=== PATIENT | female | born 1995 | race Caucasian/White ===

== ENCOUNTER 2019-01-11 15:08 | Outpatient (CLI) | payer MEDICAID ==
[2019-01-11 18:22] LABS: Basophils # (Auto) 0.1 K/mm3 (0.0-0.1); Basophils % (Auto) 0.6 % (0.0-1.8); Eosinophils # (Auto) 0.1 K/mm3 (0.0-0.4); Eosinophils % (Auto) 0.9 % (0.0-4.3); Hematocrit 32.2 % (30.3-42.9); Lymphocytes # (Auto) 1.7 K/mm3 (1.2-5.4); Lymphocytes % (Auto) 19.9 % (13.4-35.0); Mean Corpuscular HGB Conc 34 % (30-34); Mean Corpuscular Volume 92 fl (79-97); Monocytes # (Auto) 0.5 K/mm3 (0.0-0.8); Monocytes % (Auto) 6.3 % (0.0-7.3); Platelet Count 298 K/mm3 (140-440); Red Blood Count 3.49 M/mm3 (3.65-5.03); Red Cell Distribution Width 13.6 % (13.2-15.2)
[2019-01-11 18:40] LABS: Alanine Aminotransferase 12 units/L (7-56); Albumin 3.4 g/dL (3.9-5); BUN/Creatinine Ratio 18; Blood Urea Nitrogen 9 mg/dL (7-17); Hemolysis Index 5
[2019-01-11 19:01] VITALS: BP 121/79
[2019-01-11 19:33] LABS: Bilirubin,Urine NEG (Negative); Blood,Urine NEG (Negative); Color,Urine Straw (Yellow); Protein,Urine <15 mg/dL mg/dL (Negative); Urobilinogen,Urine < 2.0 mg/dL (<2.0)
--- NOTE | 2019-01-12 06:12 | Progress Note ---
Assessment and Plan A: at 33 1/7 weeks gestation. Near syncopal episode at home. P: EFM/NST. CMP, CBC, UA. Hydration. To ED via W/C for further evaluation after D/C from L&D triage. Advised patient to follow up at [facility] this week. Warning signs and daily movement counting discussed with pt. Subjective - Subjective Date of service: 01/11/19 Principal diagnosis: at 33 1/7 weeks gestation; near syncopal episode at home today Interval history: Triage note for 01/11/19: 23 year old presents to L&D triage at 33 1/7 weeks gestation complaining of near syncopal episode at home today. Patient states the episode occurred around 2:00 PM today; states she was sitting in a chair, had just finished eating lunch, and fell forward but did not fall out of chair. Pt. states she believed she was out for a few seconds only; states she vomited once, then felt better. She states she did not hit her head or her belly. Patient states she had a mild headache after the near syncopal event. She denies shaking, jerking, dizziness, palpitations, shortness of breath, chest pain, cough, leg pain, vaginal bleeding, leaking of fluid, contractions, abdominal pain, or any other problems. Patient states she feels active movement. No current medications other than LDA. Patient reports: movement normal, no loss of fluid, no vaginal bleeding, no contractions Objective - Vital Signs Vital Signs: Vital Signs - 12hr 01/11/19 01/11/19 19:00 19:06 Temperature 98.5 F Pulse Rate 74 Respiratory 18 Rate Blood Pressure 121/79 - Exam Abdomen: Present: normal appearance, soft. Absent: distention, tenderness, guarding, rigidity Uterus: Present: normal, fundal height above umbilicus. Absent: tenderness FHR: category 1 Uterine Contraction Monitor Mode: External Uterine Contraction Pattern: Absent Extremities: normal - Labs Labs: Abnormal Labs 01/11/19 01/11/19 17:59 17:59 RBC 3.49 L Seg Neutrophils % 72.3 H Creatinine 0.5 L Alkaline Phosphatase 163 H Total Protein 6.2 L Albumin 3.4 L Laboratory Results - last 24 hr 02/24/19 02/24/19 02/24/19 17:16 17:59 17:59 WBC 8.6 RBC 3.49 L Hgb 11.0 Hct 32.2 MCV 92 MCH 32 MCHC 34 RDW 13.6 Plt Count 298 Lymph % (Auto) 19.9 Millard % (Auto) 6.3 Eos % (Auto) 0.9 Baso % (Auto) 0.6 Lymph # 1.7 Millard # 0.5 Eos # 0.1 Baso # 0.1 Seg Neutrophils % 72.3 H Seg Neutrophils # 6.2 Sodium 138 Potassium 4.5 Chloride 103.3 Carbon Dioxide 25 Anion Gap 14 BUN 9 Creatinine 0.5 L Estimated GFR > 60 BUN/Creatinine Ratio 18 Glucose 92 Calcium 9.0 Total Bilirubin 0.30 AST 14 ALT 12 Alkaline Phosphatase 163 H Total Protein 6.2 L Albumin 3.4 L Albumin/Globulin Ratio 1.2 Urine Color Straw Urine Turbidity Clear Urine pH 6.0 Ur Specific Elizabeth 1.004 Urine Protein <15 mg/dl Urine Glucose (UA) Neg Urine Ketones Neg Urine Blood Neg Urine Nitrite Neg Urine Bilirubin Neg Urine Urobilinogen < 2.0 Ur Leukocyte Esterase Neg Urine WBC (Auto) 2.0 Urine RBC (Auto) 1.0 U Epithel Cells (Auto) 2.0
== END 2019-01-11 20:15 | disposition home or self-care (01) ==
LOC: TRG 15:08
PROVIDERS: ATTEND Obstetrics & Gynecology
DX: O47.03 False labor before 37 completed weeks of gestation, third trimester (principal); Z3A.33 33 weeks gestation of pregnancy
CPT/HCPCS: 36415; 59025; 71275; 80053; 81001; 83735; 84484; 85025; 85379; 85610; 85730; 93005; 93010; Q9967

== ENCOUNTER 2019-01-11 20:19 | Emergency (ER) | payer MEDICAID ==
--- NOTE | 2019-01-11 20:39 | Emergency Department Report ---
Blank Doc - Documentation Documentation: This is a 23-year-old female that presents with syncopal episode. Patient sta nalini is 33 weeks . Denies any vaginal bleeding. This initial assessment diagnostic orders/clinical plan/treatment(s) is/are subject to change based on patient's health status, clinical progression and re- assessment by fellow clinical providers in the ED. Further treatment and workup at subsequent clinical providers discretion. Patient/guardians urged not to elope from ED s their condition may be serious if not clinically assessed and managed. Initial orders include: 1-Patient sent to MAIN ED for further evaluation and treatment 2- Labs 3- UA 4- EKG
[2019-01-11 21:05] LABS: Basophils % (Auto) 0.6 % (0.0-1.8); Eosinophils # (Auto) 0.1 K/mm3 (0.0-0.4); Eosinophils % (Auto) 1.1 % (0.0-4.3); Hematocrit 34.9 % (30.3-42.9); Hemoglobin 11.8 gm/dl (10.1-14.3); Lymphocytes # (Auto) 2.2 K/mm3 (1.2-5.4); Lymphocytes % (Auto) 27.5 % (13.4-35.0); Mean Corpuscular HGB Conc 34 % (30-34); Mean Corpuscular Volume 93 fl (79-97); Monocytes # (Auto) 0.5 K/mm3 (0.0-0.8); Monocytes % (Auto) 6.7 % (0.0-7.3); Platelet Count 296 K/mm3 (140-440); Red Blood Count 3.77 M/mm3 (3.65-5.03); Red Cell Distribution Width 13.6 % (13.2-15.2)
[2019-01-11 21:08] LABS: Bilirubin,Urine NEG (Negative); Blood,Urine NEG (Negative); Color,Urine Straw (Yellow); Protein,Urine <15 mg/dL mg/dL (Negative); Urobilinogen,Urine < 2.0 mg/dL (<2.0)
[2019-01-11 21:15] LABS: INR 0.87 (0.87-1.13)
[2019-01-11 21:39] LABS: Alanine Aminotransferase 12 units/L (7-56); Albumin 3.7 g/dL (3.9-5); BUN/Creatinine Ratio 23; Blood Urea Nitrogen 9 mg/dL (7-17); Calcium 9.5 mg/dL (8.4-10.2); Hemolysis Index 1
--- NOTE | 2019-01-11 23:29 | Emergency Department Report ---
HPI - General Chief Complaint: Syncope Time Seen by Provider: 01/11/19 20:39 - HPI HPI: 23-year-old female presents to the emergency department with a complaint of having a syncopal episode around 2:00 today. The patient says that she was sitting there eating some food when she started feeling very warm and her "vision got very bright" and then the patient passed out forward onto the table. She denies falling onto the ground, hitting her head. She says that she was only unconscious for about 5 seconds and then she was back awake and alert. All this was witnessed by her . The patient is currently 33 weeks . She follows with [facility] and [facility] where she was evaluated and discharged to the emergency department for further evaluation. She has a history of previous preeclampsia during previous pregnancies. She is on vitamins and aspirin daily. Currently the patient has no complaints. ED Past Medical Hx - Past Medical History Previous Medical History?: Yes Hx Hypertension: No Hx Diabetes: No Hx Deep Vein Thrombosis: No Hx Renal Disease: No Hx Sickle Cell Disease: No Hx Seizures: No Hx Asthma: No Hx HIV: No Additional medical history: Pre-eclampsia - Surgical History Past Surgical History?: Yes Additional Surgical History: - Social History Smoking Status: Never Smoker Substance Use Type: None ED Review of Systems ROS: Stated complaint: EKG Other details as noted in HPI Comment: All other systems reviewed and negative Constitutional: denies: chills, fever Eyes: denies: eye pain, vision change ENT: denies: ear pain, throat pain Respiratory: denies: cough, shortness of breath Cardiovascular: syncope. denies: chest pain Gastrointestinal: denies: abdominal pain, vomiting Genitourinary: denies: dysuria, discharge Musculoskeletal: denies: back pain, arthralgia Skin: denies: rash, lesions Neurological: denies: headache, weakness Physical Exam - Physical Exam Vital Signs: Vital Signs 01/11/19 01/11/19 20:38 21:46 Temperature 98.3 F Pulse Rate 74 Respiratory 18 18 Rate Blood Pressure 122/84 O2 Sat by Pulse 98 Oximetry Physical Exam: GENERAL: The patient is well-developed well-nourished. HEENT: Normocephalic. Atraumatic. Patient has moist mucous membranes. EYES: Extraocular motions are intact. Pupils are equal and reactive to light bilaterally. NECK: Supple. Trachea is midline. CHEST/LUNGS: Clear to auscultation. There is no respiratory distress noted. HEART/CARDIOVASCULAR: Regular. There is no tachycardia. There is no obvious murmur. ABDOMEN: Abdomen is soft, nontender. Patient has normal bowel sounds. SKIN: Skin is warm and dry. NEURO: The patient is awake, alert, and oriented. The patient is cooperative. The patient has no focal neurologic deficits. The patient has normal speech. MUSCULOSKELETAL: There is no tenderness or deformity. There is no limitation range of motion. There is no evidence of acute injury. ED Course Vital Signs 01/11/19 01/11/19 20:38 21:46 Temperature 98.3 F Pulse Rate 74 Respiratory 18 18 Rate Blood Pressure 122/84 O2 Sat by Pulse 98 Oximetry ED Medical Decision Making - Lab Data Result diagrams: 01/11/19 20:49 01/11/19 20:49 - EKG Data -: EKG Interpreted by Ok EKG shows normal: sinus rhythm, axis, intervals, QRS complexes (Q waves to the septal leads), ST-T waves (early repolarization) Rate: normal - EKG Data When compared to previous EKG there are: previous EKG unavailable 01/12/19 01:52 Patient EKG once again shows some borderline Q waves to the septal leads but otherwise normal. No ST elevation [place] - Radiology Data Radiology results: report reviewed PROCEDURE: CT ANGIO CHEST TECHNIQUE: Computerized axial tomographic angiography of the chest and pulmonary arteries was performed after the IV injection of iodinated nonionic contrast. The image data was postprocessed using maximum intensity projection (MIP) and 2-dimensional multiplanar reformatted (MPR) techniques. The examination is specifically tailored to the evaluation of the pulmonary arteries per clinical request. HISTORY: Short of breath 786.09, chest pain 786.50, Syncope, elevated dimer COMPARISON: No prior studies are available for comparison. FINDINGS: Heart and pericardium: Normal. Thoracic aorta: Normal. Pulmonary vasculature: Normal. No pulmonary emboli. Lymph nodes: No enlarged thoracic lymph nodes. Lungs: Normal. Pleural space: No effusion, thickening, or pneumothorax. Musculoskeletal structures: No significant abnormality. Upper abdominal structures: No significant abnormality. IMPRESSION: Normal Examination. Transcribed By: CO Dictated By: JOHN LYNN MD Electronically Authenticated By: JOHN LYNN MD Signed Date/Time: 01/12/19 0137 - Medical Decision Making This patient presents to the emergency department after having a syncopal episode around 2 PM this afternoon. She is 33 weeks and therefore [facility] and had the evaluated. She continues to have a live intrauterine without any complications and then was sent to the emergency department for further evaluation of the syncopal episode. The EKG shows some Q waves to the septal leads but otherwise no signs of any ST elevation UT or dysrhythmia. Patient's labs were mostly unremarkable including a CBC, metabolic panel, troponin and urinalysis but the patient did have an elevated d-dimer level. With the elevated d-dimer and the previous syncope, a CT angiography of the chest was done. It resulted as normal without any signs of pulmonary embolism, dissection, aneurysm, or any other acute process. I had a long conversation with the patient regarding the reasons why the d-dimer had been ordered through triage, the meaning and equivocal nature of the elevated d- dimer level, the risks and benefits of the CT angiography test. All questions were answered and the patient agrees to have the CT angiography of the chest done. Vital signs stable throughout her ED course. The patient has no compl aints of any chest pain, shortness of breath. Heart and lungs sounds are normal to auscultation. The patient will be discharged home to follow up with her primary care physician and [facility]. - Differential Diagnosis vasovagal, orthostatic hypotension, dysrhythmia, pulmonary embolism Critical Care Time: No Critical care attestation.: If time is entered above; I have spent that time in minutes in the direct care of this critically ill patient, excluding procedure time. ED Disposition Clinical Impression: Qualifiers: Weeks of gestation: 33 weeks Qualified Code(s): Z3A.33 - 33 weeks gestation of Syncope Qualifiers: Syncope type: unspecified Qualified Code(s): R55 - Syncope and collapse Disposition: -01 TO HOME OR SELFCARE Is pt being admited?: No Condition: Stable Instructions: (ED), Syncope (ED) Additional Instructions: Please follow-up with your primary care physician and [facility]. I am giving you a referral for a local research test engine evaluator. Return to the emergency department with any further episodes of passing out, development of chest pain, worsening of your symptoms, or with any acute distress. Referrals: SUE ANN MD [Primary Care Provider] - 2-3 Days [facility] [Provider Group] - 2-3 Days Time of Disposition: 01:40 Print Language: IRISH
--- NOTE | 2019-01-12 01:37 | Cat Scan Report ---
FINAL REPORT PROCEDURE: CT ANGIO CHEST TECHNIQUE: Computerized axial tomographic angiography of the chest and pulmonary arteries was perfor med after the IV injection of iodinated nonionic contrast. The image data was postprocessed using max imum intensity projection (MIP) and 2-dimensional multiplanar reformatted (MPR) techniques. The exami nation is specifically tailored to the evaluation of the pulmonary arteries per clinical request. HISTORY: Short of breath 786.09, chest pain 786.50, Syncope, elevated dimer COMPARISON: No prior studies are available for comparison. FINDINGS: Heart and pericardium: Normal. Thoracic aorta: Normal. Pulmonary vasculature: Normal. No pulmonary emboli. Lymph nodes: No enlarged thoracic lymph nodes. Lungs: Normal. Pleural space: No effusion, thickening, or pneumothorax. Musculoskeletal structures: No significant abnormality. Upper abdominal structures: No significant abnormality. IMPRESSION: Normal Examination.
[2019-01-12 02:09] VITALS: BP 105/63
== END 2019-01-12 02:30 | disposition home or self-care (01) ==
LOC: ED 20:19
DX: O26.893 Other specified pregnancy related conditions, third trimester (principal); R55 Syncope and collapse; Z3A.33 33 weeks gestation of pregnancy
CPT/HCPCS: 36415; 71275; 80053; 81001; 83735; 84484; 85025; 85379; 85610; 85730; 93005; 93010; 99284; Q9967